=== PATIENT | female | born 1950 | race Caucasian/White ===

== ENCOUNTER → 2017-11-28 | Emergency (ER) | payer OTHER ==
[~2017-11-28] VITALS: Ht 157.5 cm; Wt 65.8 kg
[~2017-11-28] MED LIST: CRESTOR10 MG; TOPROL XL50 MG; TRAMADOL HCL-AP1 TAB; ZETIA10 MG
== END | disposition home or self-care (01) ==
LOC: ER 13:18
DX: R42 Dizziness and giddiness (principal); K29.60 Other gastritis without bleeding; N39.0 Urinary tract infection, site not specified

== ENCOUNTER 2018-01-07 17:14 | Emergency (ER) | payer OTHER ==
[~2018-01-07] VITALS: Ht 157.5 cm; Wt 63.5 kg
== END 2018-01-07 21:14 | disposition home or self-care (01) ==
LOC: ER 17:14
DX: S20.211A Contusion of right front wall of thorax, initial encounter (principal); W18.39XA Other fall on same level, initial encounter; Y93.89 Activity, other specified; Y92.098 Other place in other non-institutional residence as the place of occurrence of the external cause; Y99.8 Other external cause status

== ENCOUNTER 2018-11-09 13:10 | Outpatient (CLI) | payer OTHER | END 2018-11-09 14:42 | disposition home or self-care (01) | LOC: LAB 13:10 | DX: N39.0 Urinary tract infection, site not specified (principal) ==

== ENCOUNTER 2022-06-02 12:44 | Outpatient (CLI) | payer OTHER | END 2022-06-02 12:58 | disposition home or self-care (01) | LOC: MAMO-SONO 12:44 | DX: N64.3 Galactorrhea not associated with childbirth (principal) ==

== ENCOUNTER 2025-03-14 12:26 | Outpatient (CLI) | payer OTHER | END 2025-03-14 12:38 | disposition home or self-care (01) | LOC: MAMO-SONO 12:26 | DX: N63.0 Unspecified lump in unspecified breast (principal); Z12.31 Encounter for screening mammogram for malignant neoplasm of breast ==